=== PATIENT | male | born 1970 | race Caucasian/White ===

== ENCOUNTER 2019-06-30 16:02 | Inpatient (IN) | payer OTHER ==
[~2019-06-30] VITALS: Ht 185.4 cm; Wt 102.7 kg
[2019-06-30 16:11] VITALS: BP 158/87
[2019-06-30 16:33] LABS: BASOPHILS 0.7 % (0-2); EOSINOPHILS 0.7 % (0-7); HEMOGLOBIN 15.6 g/dL (13.5-17.5); LYMPHOCYTES 31.7 % (15-50); MCH 30.9 pg (26.0-34.0); MCHC 33.9 g/dL (31.0-37.0); MCV 91.1 fL (80.0-100.0); MEAN PLATELET VOLUME 10.4 fL (7.4-10.4); MONOCYTES 10.4 % (2-11); NEUTROPHILS 56.5 % (40-80); PLATELET COUNT 168 10x3/uL (130-400); RBC 5.05 10x6/uL (4.20-6.10); RDW 12.8 % (11.5-14.5); WBC 4.6 10x3/uL (4.8-10.8)
[2019-06-30 16:45] LABS: APTT 42.8 SECONDS (22.8-39.4); INR 2.05 (0.85-1.17); PROTIME 22.9 SECONDS (11.6-15.0)
[2019-06-30 16:52] LABS: CALC OSMOLALITY 271 mosm/kg (275-300); CARBON DIOXIDE 26.7 mmol/L (21.0-32.0); CHLORIDE - SERUM 102 mmol/L (98-107); CREATININE - SERUM 1.1 mg/dL (0.6-1.3); GLUCOSE 109 mg/dL (74-106); POTASSIUM - SERUM 3.3 mmol/L (3.5-5.1); SODIUM 136 mmol/L (136-145); UREA NITROGEN 10 mg/dL (7-18); eGFR NON AFRICAN AMERICAN 75 mL/min (90-120)
[2019-06-30 17:10] LABS: ALBUMIN 4.2 g/dL (3.4-5.0); ALKALINE PHOSPHATASE 60 U/L (30-120); ALT (SGPT) 52 U/L (10-68); BILIRUBIN - TOTAL 1.02 mg/dL (0.2-1.3); CKMB 0.7 U/L (0.0-3.6); CREATINE KINASE 117 UL (21-232); MAGNESIUM - SERUM 1.7 mg/dL (1.8-2.4); PROTEIN - SERUM 7.8 g/dL (6.4-8.2); THYROID STIMULATING HORMONE 1.38 uIU/mL (0.36-3.74); TROPONIN-I 0.025 ng/mL (0.000-0.060)
--- NOTE | 2019-06-30 17:17 | NUR ---
SPOKE WITH , SHE REPORTS THAT SHE SAW PATIENT LAST AT 1330 AND HE WAS NORMAL AT THAT TIME.
[2019-06-30 17:30] VITALS: BP 167/85
[2019-06-30 18:14] LABS: UDS - AMPHET NEGATIVE QUAL (NEGATIVE); UDS - BARB NEGATIVE QUAL (NEGATIVE); UDS - BENZO NEGATIVE QUAL (NEGATIVE); UDS - COCAINE NEGATIVE QUAL (NEGATIVE); UDS - OPIATE NEGATIVE QUAL (NEGATIVE); UDS - PCP NEGATIVE QUAL (NEGATIVE); UDS - THC NEGATIVE QUAL (NEGATIVE)
[2019-06-30 18:30] VITALS: BP 161/78
--- NOTE | 2019-06-30 18:30 | NUR ---
SPOKE WITH , PER DAUGHTER PT WAS EXHIBITING SOME CONFUSION THIS AM WHILE TAKING MEDICATION.
[2019-06-30 18:44] LABS: BILIRUBIN NEGATIVE (NEGATIVE); GLUCOSE NEGATIVE (NEGATIVE); KETONE NEGATIVE (NEGATIVE); NITRITE NEGATIVE (NEGATIVE); UROBILINOGEN NORMAL (NORMAL)
--- NOTE | 2019-06-30 19:29 | NUR ---
GAVE REPORT TO HONEY GUEVARA
[2019-06-30 19:35] LABS: APTT 28.1 SECONDS (22.8-39.4); INR 1.16 (0.85-1.17); PROTIME 14.7 SECONDS (11.6-15.0)
[2019-06-30 21:19] VITALS: BP 143/78
[2019-06-30 22:59] VITALS: BP 106/71
--- NOTE | 2019-06-30 23:15 | NUR ---
RECEIVED TO FLOOR VIA WHEELCHAIR, ACCOMPANIED BY ER STAFF. AMBULATES AD VANNESA. A&O X 4, BUT REPORTS MEMORY DEFICITS THROUGHOUT DAY. DOES NOT REMEMBER DRIVING TO [employer](LAST PLACE HE REMEMBER BEING PRIOR TO ER), DOES NOT REMEMBER IF HE RODE VIA [facility], THINKS HIS TRUCK AND WALLET MAY STILL BE AT [employer], BUT REPORTS HE HAS HIS KEYS. ABLE TO RECALL ALL EVENTS SINCE ARRIVAL TO ER. DENIES SIGNIFICANT MEDICAL HISTORY OTHER THAN MONTHLY NECK INJECTIONS FOR BULGING DISCS. REPORTS HEADACHE/PAIN 06/05 TO HEAD AND NECK. ICE AND WARM PACK GIVEN PER REQUEST. TOLERATING REGULAR DIET. REFUSES SCDs. DOES NOT WISH TO WEAR A GOWN AT THIS TIME. DENIES WEAKNESS, VS STABLE. WILL CONTINUE TO MONITOR.
[2019-06-30] MEDS ORDERED: PROTONIX40 MG PO (23:21)
[2019-06-30] MEDS ORDERED: VOLTAREN75 MG PO (23:22)
[2019-06-30] MEDS ORDERED: SKELAXIN800 MG PO (23:29)
[2019-06-30 23:46] VITALS: BP 128/69; Ht 185.4 cm; Wt 102.7 kg
[2019-07-01 00:03] VITALS: BP 128/69
[2019-07-01 04:53] LABS: BASOPHILS 0.5 % (0-2); EOSINOPHILS 0.7 % (0-7); HEMOGLOBIN 14.2 g/dL (13.5-17.5); IMMATURE GRANULOCYTES 0.2 % (0-5); LYMPHOCYTES 37.6 % (15-50); MCH 30.1 pg (26.0-34.0); MCV 91.3 fL (80.0-100.0); MEAN PLATELET VOLUME 10.7 fL (7.4-10.4); RBC 4.71 10x6/uL (4.20-6.10); RDW 12.7 % (11.5-14.5); WBC 5.7 10x3/uL (4.8-10.8)
[2019-07-01 05:03] LABS: PLATELET COUNT 204 10x3/uL (130-400)
[2019-07-01 05:05] LABS: CALC OSMOLALITY 270 mosm/kg (275-300); CALCIUM 8.9 mg/dL (8.5-10.1); CARBON DIOXIDE 28.2 mmol/L (21.0-32.0); CHLORIDE - SERUM 105 mmol/L (98-107); CREATININE - SERUM 1.1 mg/dL (0.6-1.3); GLUCOSE 97 mg/dL (74-106); POTASSIUM - SERUM 3.5 mmol/L (3.5-5.1); SODIUM 136 mmol/L (136-145); UREA NITROGEN 10 mg/dL (7-18); eGFR NON AFRICAN AMERICAN 75 mL/min (90-120)
[2019-07-01 05:34] VITALS: BP 121/72
[2019-07-01 05:57] LABS: APTT 27.8 SECONDS (22.8-39.4); INR 1.05 (0.85-1.17); PROTIME 13.6 SECONDS (11.6-15.0)
[2019-07-01 07:05] LABS: CKMB 0.6 U/L (0.0-3.6); CREATINE KINASE 91 UL (21-232); MAGNESIUM - SERUM 1.9 mg/dL (1.8-2.4); PHOSPHOROUS 3.1 mg/dL (2.5-4.9)
[2019-07-01 09:07] VITALS: BP 125/78
[2019-07-01 12:45] VITALS: BP 129/78
[2019-07-01 16:19] LABS: CHOL - HDL RATIO 3.1 ratio (2.3-4.9); LDL-HDL RATIO 1.8 ratio (1.5-3.5)
[2019-07-01 17:47] VITALS: BP 113/69
--- NOTE | 2019-07-01 18:45 | NUR ---
I have reviewed this patient and I concur with the Shift Assessment completed by the Licensed Practical Nurse today this shift.
[2019-07-01 21:42] VITALS: BP 125/77
[2019-07-02 00:23] VITALS: BP 112/68
[2019-07-02 05:29] LABS: BASOPHILS 0.5 % (0-2); EOSINOPHILS 1.3 % (0-7); HEMATOCRIT 45.8 % (42.0-54.0); HEMOGLOBIN 15.1 g/dL (13.5-17.5); LYMPHOCYTES 45.8 % (15-50); MCH 30.1 pg (26.0-34.0); MCV 91.4 fL (80.0-100.0); MEAN PLATELET VOLUME 10.9 fL (7.4-10.4); MONOCYTES 13.9 % (2-11); NEUTROPHILS 38.5 % (40-80); PLATELET COUNT 219 10x3/uL (130-400); RBC 5.01 10x6/uL (4.20-6.10); RDW 12.9 % (11.5-14.5)
[2019-07-02 05:59] LABS: CALC OSMOLALITY 278 mosm/kg (275-300); CARBON DIOXIDE 26.2 mmol/L (21.0-32.0); CHLORIDE - SERUM 105 mmol/L (98-107); CREATININE - SERUM 1.1 mg/dL (0.6-1.3); GLUCOSE 90 mg/dL (74-106); PHOSPHOROUS 3.4 mg/dL (2.5-4.9); POTASSIUM - SERUM 3.7 mmol/L (3.5-5.1); SODIUM 139 mmol/L (136-145); eGFR NON AFRICAN AMERICAN 75 mL/min (90-120)
[2019-07-02 06:04] VITALS: BP 90/53
[2019-07-02 06:17] LABS: UREA NITROGEN 14 mg/dL (7-18)
--- NOTE | 2019-07-02 07:20 | NUR ---
REC'D IN BED AWAKE AND ALERT. RESP EVEN AND UNLABORED WITH NO DISTRESS NOTED. CAN EXPRESS NEEDS AND WANTS. DENIES ANY PAIN OR DISCOMFORT AT THIS TIME. ASSESSMENT COMPLETED. C/L IN REACH AT BEDSIDE.
--- NOTE | 2019-07-02 07:30 | NUR ---
I have reviewed this patient and I concur with the Shift Assessment completed by the Licensed Practical Nurse today this shift.
[2019-07-02 09:47] VITALS: BP 107/70
[2019-07-02 13:17] VITALS: BP 125/80
[2019-07-02] MEDS ORDERED: PLAVIX75 MG PO (14:40)
--- NOTE | 2019-07-02 16:19 | MORECARE ---
CASE MANAGEMENT DISCHARGE SUMMARY PATIENT: LUCA MEEHAN UNIT: [id number] ADM DATE: 06/30/19 AGE: 48 : 66 SEX: M ROOM/BED: D.2214 AUTHOR: NIDA CARRASCO PHYSICIAN: REFERRING PHYSICIAN: NICOLA HAAS MD DATE OF SERVICE: 07/02/19 Discharge Plan Patient Name: LUCA MEEHAN Facility: [facility]:[place] : 1970 Planned Disposition: Anticipated Discharge Date: Discharge Date: Expected LOS: Initial Reviewer: [email or web address] Initial Review Date: 07/02/2019 Generated: 07/02/19 5:18 pm Patient Name: LUCA MEEHAN Page 21057 at 1619 All edits/amendments must be made on the electronic document DICTATION DATE: 07/02/191617 MACHINE OPERATOR GENERAL: PETER 07/02/191617 RPT#: [id number] DC DATE: STATUS: ADM IN [facility] [address] [place] [address] END OF REPORT
--- NOTE | 2019-07-02 16:26 | MORECARE ---
CASE MANAGEMENT DISCHARGE SUMMARY PATIENT: LUCA MEEHAN UNIT: [id number] ADM DATE: 06/30/19 AGE: 48 : 66 SEX: M ROOM/BED: D.2214 AUTHOR: NIDA CARRASCO PHYSICIAN: REFERRING PHYSICIAN: NICOLA HAAS MD DATE OF SERVICE: 07/02/19 Discharge Plan Patient Name: LUCA MEEHAN [facility]:[place] : 1970 Planned Disposition: Anticipated Discharge Date: Discharge Date: Expected LOS: Initial Reviewer: [email or web address] Initial Review Date: 07/02/2019 Generated: 07/02/19 5:26 pm DCPIA - Discharge Planning Initial Assessment Updated by [email or web address]: Eusebia Cornelius on 07/02/19 4:20 pm * Is the patient Alert and Oriented? Yes * PCP THOMAS * [facility]acy [facility] * Preadmission Environment Home with Family * ADLs Independent * Other Equipment NONE * Community resources currently utilized None * Additional services required to return to the preadmission environment? No * Can the patient safely return to the preadmission environment? Yes * Has this patient been hospitalized within the prior 30 days at any hospital? No Last DP export: 07/02/19 3:19 pm Patient Name: LUCA MEEHAN Page 27840 at 1626 All edits/amendments must be made on the electronic document DICTATION DATE: 07/02/191625 PLASTIC PRESS MOLDER: PETRE 07/02/191625 RPT#: [id number] DC DATE: STATUS: ADM IN [facility] [address] [place] [address] END OF REPORT
--- NOTE | 2019-07-02 16:34 | MORECARE ---
CASE MANAGEMENT DISCHARGE SUMMARY PATIENT: LUCA MEEHAN UNIT: [id number] ADM DATE: 06/30/19 AGE: 48 : 66 SEX: M ROOM/BED: D.2214 AUTHOR: NIDA CARRASCO PHYSICIAN: REFERRING PHYSICIAN: NICOLA HAAS MD DATE OF SERVICE: 07/02/19 Discharge Plan Patient Name: LUCA MEEHAN Facility: [facility]:[place] : 1970 Planned Disposition: Anticipated Discharge Date: Discharge Date: Expected LOS: Initial Reviewer: [email or web address] Initial Review Date: 07/02/2019 Generated: 07/02/19 5:33 pm Comments DCP- Discharge Planning Updated by [email or web address]: Eusebia Cornelius on 07/02/19 3:[address] Patient Name: LUCA MEEHAN Admission Status: ER Accout number: [id number] Admission Date: 06-30-2019 : 1970 Admission Diagnosis:ALTERED MENTAL STATUS, UNSPECIFIED Attending: NICOLA HAAS Current LOS: 2 Anticipated DC Date: Planned Disposition: Primary Insurance: [facility] PPO Discharge Planning Comments: CM met with patient at bedside after explaining CM role and obtaining verbal consent. CM discussed availability / needs of home health, REHAB and medical equipment. PATIENT DENIES ANY DISCHARGE NEEDS. HE IS CALLING HIS TO ADVICE LINE RN. Grating Machine Operator: Eusebia Cornelius DCPIA - Discharge Planning Initial Assessment Updated by [email or web address]: Eusebia Cornelius on 07/02/19 4:20 pm * Is the patient Alert and Oriented? Yes * PCP THOMAS * [facility]acy [facility] * Preadmission Environment Home with Family * ADLs Independent * Other Equipment NONE * Community resources currently utilized None * Additional services required to return to the preadmission environment? No * Can the patient safely return to the preadmission environment? Yes * Has this patient been hospitalized within the prior 30 days at any hospital? No Last DP export: 07/02/19 3:26 pm Patient Name: LUCA MEEHAN Page [id number] at 1634 All edits/amendments must be made on the electronic document DICTATION DATE: 07/02/191632 SKIN CARE INSTRUCTOR: DM 07/02/19 163 RPT#: [id number] DC DATE: STATUS: ADM IN [facility] [address] [place] [address] END OF REPORT
[2019-07-02 17:29] VITALS: BP 121/65
--- NOTE | 2019-07-02 17:35 | NUR ---
DC HOME AT THIS TIME VOICE UNDERSTANDING OF DC INSTRUCTION. IV DC WELL. PT TOOK ALL PERSONAL BELONGING. STABLE CONDITION UPON DEPARTURE.
--- NOTE | 2019-07-02 23:59 | MORECARE ---
CASE MANAGEMENT DISCHARGE SUMMARY PATIENT: LUCA MEEHAN UNIT: [id number] ADM DATE: 06/30/19 AGE: 48 : 66 SEX: M ROOM/BED: D.2214 AUTHOR: NIDA CARRASCO PHYSICIAN: REFERRING PHYSICIAN: NICOLA HAAS MD DATE OF SERVICE: 07/02/19 Discharge Plan Patient Name: LUCA MEEHAN Facility: [facility]:[place] : 1970 Planned Disposition: Anticipated Discharge Date: Discharge Date: 07/02/2019 Expected LOS: Initial Reviewer: [email or web address] Initial Review Date: 07/02/2019 Generated: 07/03/19 12:59 am Comments DCP- Discharge Planning Updated by [email or web address]: Eusebia Cornelius on 07/02/19 3:[address] Patient Name: LUCA MEEHAN Admission Status: ER Accout number: [id number] Admission Date: 06-30-2019 : 1970 Admission Diagnosis:ALTERED MENTAL STATUS, UNSPECIFIED Attending: INCOLA HAAS Current LOS: 2 Anticipated DC Date: Planned Disposition: Primary Insurance: [facility] PPO Discharge Planning Comments: CM met with patient at bedside after explaining CM role and obtaining verbal consent. CM discussed availability / needs of home health, REHAB and medical equipment. PATIENT DENIES ANY DISCHARGE NEEDS. HE IS CALLING HIS TO PROJECT ACCOUNT MANAGER. Field Return Repairer: Eusebia Cornelius DCPIA - Discharge Planning Initial Assessment Updated by [email or web address]: Eusebia Cornelius on 07/02/19 4:20 pm * Is the patient Alert and Oriented? Yes * PCP THOMAS * [facility]acy [facility] * Preadmission Environment Home with Family * ADLs Independent * Other Equipment NONE * Community resources currently utilized None * Additional services required to return to the preadmission environment? No * Can the patient safely return to the preadmission environment? Yes * Has this patient been hospitalized within the prior 30 days at any hospital? No Last DP export: 07/02/19 3:34 pm Patient Name: LUCA MEEHAN Page 25033 at 5061 All edits/amendments must be made on the electronic document DICTATION DATE: 07/02/192358 SOLAR ENERGY ENGINEER: PETER 07/02/192358 RPT#: [id number] DC DATE:07/02/19 STATUS: DIS IN [facility] [address] [place] [address] END OF REPORT
== END 2019-07-02 17:35 | disposition home or self-care (01) | DRG 71 ==
LOC: D.ER 16:02 → D.MS 22:33
PROVIDERS: Family Medicine; ADMIT Internal Medicine Nephrology; ATTEND Internal Medicine Nephrology
DX: G93.41 Metabolic encephalopathy (principal); G45.9 Transient cerebral ischemic attack, unspecified; K21.9 Gastro-esophageal reflux disease without esophagitis; E87.6 Hypokalemia